=== PATIENT | male | born 1980 | race African-American/Black ===

== ENCOUNTER 2019-04-28 21:47 | Emergency (ER) | payer OTHER ==
[~2019-04-28] VITALS: Ht 170.2 cm; Wt 81.0 kg
[2019-04-28] MEDS ORDERED: KETOROLAC 60MG/2ML VIAL IM NR (22:32)
[2019-04-28] MEDS ORDERED: BACITRACIN 15GM TUBE TOP ONE (23:30)
[2019-04-29 00:09] VITALS: BP 110/83
== END 2019-04-29 00:10 | disposition home or self-care (01) ==
LOC: ER 21:47
DX: S70.212A Abrasion, left hip, initial encounter (principal); S40.212A Abrasion of left shoulder, initial encounter; V23.4XXA Motorcycle driver injured in collision with car, pick-up truck or van in traffic accident, initial encounter; Y93.89 Activity, other specified; Y92.488 Other paved roadways as the place of occurrence of the external cause
CPT/HCPCS: 73502; 96372; 99283; J1885